=== PATIENT | male | born 1955 | race Caucasian/White ===

== ENCOUNTER 2018-03-16 08:31 | Emergency (ER) | payer OTHER ==
[2018-03-16 10:29] LABS: ADD MAN DIFF? NO
[2018-03-16] MEDS: ONDANSETRON 4 MG INJ IV ×3 (10:33→12:14)
[2018-03-16] MEDS: morphine 4 MG/ML VIAL IV (10:33)
[2018-03-16] MEDS: LIDOCAINE/MYLANTA 40 ML BTL PO (10:33)
[2018-03-16 10:35] LABS: BASOPHILS % 0.3 % (0.0-2.0); EOSINOPHILS # 0.1 10^3/ul (0.0-0.5); EOSINOPHILS % 0.5 % (0.0-7.0); HEMATOCRIT 46.3 % (42.0-52.0); HEMOGLOBIN 15.5 g/dl (14.0-18.0); LYMPHOCYTES # 1.5 10^3/ul (0.8-2.9); LYMPHOCYTES % 14.2 % (15.0-51.0); MEAN CORPUSCULAR HEMOGLOBIN 30.6 pg (29.0-33.0); MEAN CORPUSCULAR HGB CONC 33.5 g/dl (32.0-37.0); MEAN CORPUSCULAR VOLUME 91.5 fl (82.0-101.0); MEAN PLATELET VOLUME 10.7 fl (7.4-10.4); MONOCYTE # 0.4 10^3/ul (0.3-0.9); MONOCYTES % 3.6 % (0.0-11.0); NEUTROPHIL # 8.5 10^3/ul (1.6-7.5); NEUTROPHILS % 81.1 % (39.0-77.0); PLATELET COUNT 165 10^3/UL (140-415); RED BLOOD COUNT 5.06 10^6/ul (4.70-6.10); RED CELL DISTRIBUTION WIDTH 12.5 % (11.5-14.5)
[2018-03-16 10:35] LABS: WHITE BLOOD COUNT 10.5 10^3/ul (4.8-10.8)
[2018-03-16 10:51] LABS: ALANINE AMINOTRANSFERASE 31 IU/L (13-69); ALBUMIN 4.8 g/dl (3.3-4.9); ALBUMIN/GLOBULIN RATIO 1.71; ALKALINE PHOSPHATASE 56 IU/L (42-121); ANION GAP 13 (8-16); ASPARTATE AMINO TRANSFERASE 26 IU/L (15-46); BILIRUBIN,INDIRECT 0.7 mg/dl (0-1.1); BILIRUBIN,TOTAL 0.7 mg/dl (0.2-1.3); BLOOD UREA NITROGEN 16 mg/dl (7-20); CALCIUM 9.7 mg/dl (8.4-10.2); CARBON DIOXIDE 29 mmol/L (21-31); CHLORIDE 107 mmol/L (97-110); CREATININE 1.03 mg/dl (0.61-1.24); GLUCOSE 122 mg/dl (70-220); LIPASE 224 U/L (23-300); POTASSIUM 3.9 mmol/L (3.5-5.1); SODIUM 145 mmol/L (135-144); TOTAL PROTEIN 7.6 g/dl (6.1-8.1)
[2018-03-16 11:02] LABS: TROPONIN-I < 0.010 ng/ml (0.000-0.120)
[2018-03-16] MEDS: HYDROmorphONE 1 MG/ML SYG IV ×2 (11:29→12:15)
== END 2018-03-16 13:41 | disposition home or self-care (01) ==
LOC: E/R 08:31
DX: K80.50 Calculus of bile duct without cholangitis or cholecystitis without obstruction (principal); K83.8 Other specified diseases of biliary tract; R40.2142 Coma scale, eyes open, spontaneous, at arrival to emergency department; R40.2252 Coma scale, best verbal response, oriented, at arrival to emergency department; R40.2362 Coma scale, best motor response, obeys commands, at arrival to emergency department
CPT/HCPCS: 36415; 76705; 80053; 83690; 84484; 85025; 96374; 96375; 96376; 99285-25

== ENCOUNTER 2018-03-18 11:21 | Inpatient (IN) | payer OTHER ==
[~2018-03-18 11:21] MED LIST: ACETAMINOPHEN 1000 MG/100 ML IVPB; CEFAZOLIN 1 GM INJ; ROCURONIUM 50 MG INJ; SUGAMMADEX SODIUM 200 MG/2 ML VIAL IV
[2018-03-18] MEDS: morphine 4 MG/ML VIAL IV (11:42)
[2018-03-18] MEDS: ONDANSETRON 4 MG INJ IV ×2 (11:42→20:19)
[2018-03-18 11:56] LABS: ADD MAN DIFF? NO
[2018-03-18 11:59] LABS: BASOPHIL # 0.1 10^3/ul (0.0-0.1); BASOPHILS % 0.4 % (0.0-2.0); EOSINOPHILS # 0.2 10^3/ul (0.0-0.5); EOSINOPHILS % 1.5 % (0.0-7.0); HEMATOCRIT 45.4 % (42.0-52.0); HEMOGLOBIN 15.3 g/dl (14.0-18.0); LYMPHOCYTES # 2.5 10^3/ul (0.8-2.9); LYMPHOCYTES % 21.7 % (15.0-51.0); MEAN CORPUSCULAR HEMOGLOBIN 31.4 pg (29.0-33.0); MEAN CORPUSCULAR HGB CONC 33.7 g/dl (32.0-37.0); MEAN PLATELET VOLUME 11.1 fl (7.4-10.4); MONOCYTE # 0.9 10^3/ul (0.3-0.9); MONOCYTES % 7.7 % (0.0-11.0); NEUTROPHIL # 7.8 10^3/ul (1.6-7.5); NEUTROPHILS % 68.4 % (39.0-77.0); PLATELET COUNT 166 10^3/UL (140-415); RED BLOOD COUNT 4.88 10^6/ul (4.70-6.10); RED CELL DISTRIBUTION WIDTH 12.5 % (11.5-14.5)
[2018-03-18 11:59] LABS: WHITE BLOOD COUNT 11.3 10^3/ul (4.8-10.8)
[2018-03-18 12:16] LABS: ALANINE AMINOTRANSFERASE 28 IU/L (13-69); ALBUMIN 4.6 g/dl (3.3-4.9); ALBUMIN/GLOBULIN RATIO 1.53; ALKALINE PHOSPHATASE 51 IU/L (42-121); ANION GAP 14 (8-16); ASPARTATE AMINO TRANSFERASE 21 IU/L (15-46); BILIRUBIN,INDIRECT 1.1 mg/dl (0-1.1); BILIRUBIN,TOTAL 1.1 mg/dl (0.2-1.3); BLOOD UREA NITROGEN 16 mg/dl (7-20); CALCIUM 9.1 mg/dl (8.4-10.2); CARBON DIOXIDE 30 mmol/L (21-31); CHLORIDE 103 mmol/L (97-110); CREATININE 1.13 mg/dl (0.61-1.24); GLUCOSE 152 mg/dl (70-220); LIPASE 24 U/L (23-300); POTASSIUM 3.5 mmol/L (3.5-5.1); SODIUM 143 mmol/L (135-144); TOTAL PROTEIN 7.6 g/dl (6.1-8.1)
[2018-03-18] MEDS: KETOROLAC 30 MG INJ IV (12:16)
[2018-03-18 12:28] LABS: TROPONIN-I < 0.010 ng/ml (0.000-0.120)
[2018-03-18] MEDS: PIPER-TAZO 3.375 GM IV (PMX) 100 ML IVPB (14:55)
[2018-03-18 15:32] LABS: ADD UMIC YES; UR ASCORBIC ACID 20 mg/dL (NEGATIVE); UR BACTERIA FEW /HPF (NONE SEEN); UR BILIRUBIN (Dip) NEGATIVE (NEGATIVE); UR BLOOD (Dip) 2+ mg/dL (NEGATIVE); UR CLARITY SLIGHTLY CLOUDY (CLEAR); UR COLOR AMBER (YELLOW); UR GLUCOSE (Dip) NEGATIVE (NEGATIVE); UR KETONES (Dip) TRACE mg/dL (NEGATIVE); UR LEUKOCYTE ESTERASE (Dip) NEGATIVE Leu/ul (NEGATIVE); UR MUCUS MANY /HPF (NONE SEEN); UR NITRITE (Dip) NEGATIVE (NEGATIVE); UR RBC 13 /HPF (0-5); UR SPECIFIC GRAVITY (Dip) 1.034 (1.003-1.030); UR TOTAL PROTEIN (Dip) 2+ mg/dl (NEGATIVE); UR UROBILINOGEN (Dip) 1+ mg/dL (NEGATIVE); UR WBC 6 /HPF (0-5)
[2018-03-18] MEDS ORDERED: BISACODYL 10 MG SUPP PR (16:00)
[2018-03-18] MEDS ORDERED: hydrOXYzine HCL 25 MG TAB PO (16:00)
[2018-03-18] MEDS ORDERED: NACL 0.9% 3 ML SYG IV (16:00)
[2018-03-18] MEDS ORDERED: HYDROCODONE/APAP (5/325) TAB PO (16:00)
[2018-03-18] MEDS ORDERED: ACETAMINOPHEN 650 MG SUPP PR (16:00)
[2018-03-18] MEDS ORDERED: morphine 2 MG INJ IV ×2 (16:00→20:30)
[2018-03-18] MEDS: HYDROCODONE/APAP (5/325) TAB PO (16:18)
[2018-03-18] MEDS: SOD CHLORIDE 0.9% 1,000 ML IV ×2 (16:55→20:35)
[2018-03-18] MEDS: FISH OIL 1,000 MG CAP PO (17:24)
[2018-03-18] MEDS ORDERED: FENTAnyl 50 MCG/ML VIAL (18:45)
[2018-03-18] MEDS ORDERED: PROPOFOL 20 ML (18:45)
[2018-03-18] MEDS ORDERED: MIDAZOLAM 1 MG/ML 2 ML INJ (18:45)
[2018-03-18] MEDS ORDERED: LIDOCAINE 2% (SDV) 5 ML INJ (18:45)
[2018-03-18] MEDS ORDERED: SUCCINYLCHOLINE CHLORIDE 100 MG/5 ML SYG IV (18:45)
[2018-03-18] MEDS: BUPIVACAINE 0.25% (MPF) 30 ML INJ (19:23)
[2018-03-18] MEDS ORDERED: DEXAMETHASONE 4 MG/ML 1 ML INJ (19:34)
[2018-03-18] MEDS: HYDROmorphONE 1 MG/5 ML IV SYRINGE IV (20:19)
[2018-03-18] MEDS ORDERED: OXYCODONE/ACETAMINOPHEN (5/325) TAB PO ×2 (20:30)
[2018-03-18] MEDS ORDERED: hydrALAzine 20 MG INJ IV (20:30)
[2018-03-18] MEDS ORDERED: MEPERIDINE 25 MG INJ IV (20:30)
[2018-03-18] MEDS ORDERED: FENTAnyl 50 MCG/ML VIAL IV ×2 (20:30)
[2018-03-18] MEDS ORDERED: ONDANSETRON 4 MG INJ IV ×2 (20:30)
[2018-03-18] MEDS ORDERED: IPRATROPIUM (NEB) 0.5 MG/2.5 ML AMP HHN (20:30)
[2018-03-18] MEDS ORDERED: KETOROLAC 30 MG INJ IV (20:30)
[2018-03-18] MEDS ORDERED: DIPHENHYDRAMINE 50 MG INJ IV (20:30)
[2018-03-18] MEDS ORDERED: HYDROmorphONE 1 MG/5 ML IV SYRINGE IV ×2 (20:30)
[2018-03-18] MEDS ORDERED: LABETALOL HCL 20MG INJ IV (20:30)
[2018-03-18] MEDS: ACETAMINOPHEN 325 MG TAB PO (20:53)
[2018-03-18] MEDS: DOXAZOSIN 2 MG TAB PO (21:00)
[2018-03-18] MEDS: PIPER-TAZO 2.25 GM (PMX) 50 ML IVPB (22:07)
[2018-03-18] MEDS: ENALAPRIL 10 MG TAB PO (22:55)
[2018-03-18] MEDS: ATORVASTATIN 20 MG TAB PO (22:55)
[2018-03-19] MEDS: PIPER-TAZO 2.25 GM (PMX) 50 ML IVPB ×4 (00:31→17:55)
[2018-03-19 05:52] LABS: ADD MAN DIFF? NO
[2018-03-19] MEDS: PANTOPRAZOLE 40 MG INJ IV (05:54)
[2018-03-19] MEDS: HYDROCHLOROTHIAZIDE 25 MG TAB PO (06:00)
[2018-03-19 06:04] LABS: WHITE BLOOD COUNT 8.2 10^3/ul (4.8-10.8)
[2018-03-19 06:04] LABS: BASOPHILS % 0.4 % (0.0-2.0); EOSINOPHILS # 0.1 10^3/ul (0.0-0.5); EOSINOPHILS % 1.2 % (0.0-7.0); HEMATOCRIT 35.9 % (42.0-52.0); HEMOGLOBIN 11.9 g/dl (14.0-18.0); LYMPHOCYTES # 1.7 10^3/ul (0.8-2.9); LYMPHOCYTES % 20.9 % (15.0-51.0); MEAN CORPUSCULAR HEMOGLOBIN 31.2 pg (29.0-33.0); MEAN CORPUSCULAR HGB CONC 33.1 g/dl (32.0-37.0); MEAN CORPUSCULAR VOLUME 94.2 fl (82.0-101.0); MEAN PLATELET VOLUME 11.1 fl (7.4-10.4); MONOCYTE # 0.6 10^3/ul (0.3-0.9); MONOCYTES % 7.8 % (0.0-11.0); NEUTROPHIL # 5.7 10^3/ul (1.6-7.5); NEUTROPHILS % 69.3 % (39.0-77.0); PLATELET COUNT 139 10^3/UL (140-415); RED BLOOD COUNT 3.81 10^6/ul (4.70-6.10); RED CELL DISTRIBUTION WIDTH 12.8 % (11.5-14.5)
[2018-03-19 06:42] LABS: ALANINE AMINOTRANSFERASE 57 IU/L (13-69); ALBUMIN 2.9 g/dl (3.3-4.9); ALBUMIN/GLOBULIN RATIO 1.26; ALKALINE PHOSPHATASE 41 IU/L (42-121); ANION GAP 9 (8-16); ASPARTATE AMINO TRANSFERASE 59 IU/L (15-46); BILIRUBIN,INDIRECT 0.6 mg/dl (0-1.1); BILIRUBIN,TOTAL 0.6 mg/dl (0.2-1.3); BLOOD UREA NITROGEN 16 mg/dl (7-20); CARBON DIOXIDE 27 mmol/L (21-31); CHLORIDE 111 mmol/L (97-110); CHOL/HDL RATIO 2.7 RATIO; CHOLESTEROL 87 mg/dl (100-200); CREATININE 1.08 mg/dl (0.61-1.24); GLUCOSE 91 mg/dl (70-220); HDL CHOLESTEROL 32 mg/dl (30-78); LDL CHOLESTEROL,CALCULATED 42 mg/dl; MAGNESIUM 2.1 mg/dl (1.7-2.5); PHOSPHORUS 2.9 mg/dl (2.5-4.9); POTASSIUM 4.2 mmol/L (3.5-5.1); SODIUM 143 mmol/L (135-144); TOTAL PROTEIN 5.2 g/dl (6.1-8.1); TRIGLYCERIDES 65 mg/dl (0-149)
[2018-03-19 06:58] LABS: FREE THYROXINE INDEX (Calc) 2.18 ug/ml (0.65-3.89); T3 UPTAKE 38.2 % (23.5-40.5); T4 (THYROXINE) 5.7 ug/dl (5.5-11.0)
[2018-03-19 07:11] LABS: THYROID STIMULATING HORMONE 0.895 MIU/L (0.465-4.680)
[2018-03-19 08:01] LABS: HEMOGLOBIN A1C 5.5 % (0-5.9)
[2018-03-19] MEDS ORDERED: [UNRECOGNIZED DRUG - OTHER] PO (09:00)
[2018-03-19] MEDS ORDERED: DHA PO (09:00)
[2018-03-19] MEDS ORDERED: OMEGA PO (09:00)
[2018-03-19] MEDS ORDERED: EPA PO (09:00)
[2018-03-19] MEDS ORDERED: HYDROCHLOROTHIAZIDE 50 MG PO (09:00)
[2018-03-19] MEDS ORDERED: FISH OIL PO (09:00)
[2018-03-19] MEDS: ENALAPRIL 10 MG TAB PO ×2 (09:11→21:00)
[2018-03-19] MEDS: FISH OIL 1,000 MG CAP PO (09:11)
[2018-03-19] MEDS: SOD CHLORIDE 0.9% 1,000 ML IV (10:04)
[2018-03-19] MEDS: ACETAMINOPHEN 325 MG TAB PO ×2 (12:00→21:18)
[2018-03-19] MEDS: MAGNESIUM HYDROXIDE 30ML CUP PO (13:16)
[2018-03-19] MEDS: DOCUSATE SODIUM 100 MG CAP PO (13:16)
[2018-03-19] MEDS ORDERED: morphine LIQ (10 MG/5 ML) CUP PO (16:30)
[2018-03-19] MEDS: ATORVASTATIN 20 MG TAB PO (21:00)
[2018-03-19] MEDS: DOXAZOSIN 2 MG TAB PO (21:00)
[2018-03-20] MEDS: PIPER-TAZO 2.25 GM (PMX) 50 ML IVPB ×2 (00:02→06:24)
[2018-03-20] MEDS: SOD CHLORIDE 0.9% 1,000 ML IV (00:05)
[2018-03-20] MEDS: HYDROCHLOROTHIAZIDE 25 MG TAB PO (06:00)
[2018-03-20] MEDS: DOCUSATE SODIUM 100 MG CAP PO (06:24)
[2018-03-20] MEDS: PANTOPRAZOLE 40 MG INJ IV (06:24)
[2018-03-20] MEDS: ENALAPRIL 10 MG TAB PO (09:12)
[2018-03-20] MEDS: FISH OIL 1,000 MG CAP PO (09:12)
== END 2018-03-20 12:05 | disposition home or self-care (01) | DRG 419 ==
LOC: E/R 11:21 → PP2 16:35
PROC: 0FT44ZZ Resection of Gallbladder, Percutaneous Endoscopic Approach (ICD-10-PCS; principal; 2018-03-18 16:00)
DX: K80.00 Calculus of gallbladder with acute cholecystitis without obstruction (principal); I10 Essential (primary) hypertension; E78.5 Hyperlipidemia, unspecified; K21.9 Gastro-esophageal reflux disease without esophagitis; Z72.0 Tobacco use
CPT/HCPCS: 36415; 74176; 80053; 80061; 81001; 83036; 83690; 83735; 84100; 84436; 84443; 84479; 84484; 85025; 87070; 88304; 96374; 96375; 99285-25